=== PATIENT | male | born 1970 | race Two or more races ===

== ENCOUNTER 2017-06-09 22:34 | Emergency (ER) | payer SELFPAY ==
[2017-06-09 22:43] VITALS: RESP 16
--- NOTE | 2017-06-09 23:05 | EDPHY ---
H & P Stated Complaint: JIMENEZ, swelling, and SOB HPI/ROS: HPI CHIEF COMPLAINT: Headache, feet swelling, hand swelling HISTORY OF PRESENT ILLNESS: This patient is a 47-year-old male, presents to the emergency room headache that started around 4:00 a.m. earlier this morning, additionally he reports that his face was swollen hands were swollen and feet were swollen. Patient states that his main complaint is a frontal throbbing headache that started at 4:00 a.m. it was gradual in onset was not thunderclap it was not sudden in onset he denies any neck pain or fever. He denies nausea, denies chest pain or shortness of breath. Denies focal numbness or tingling or focal weakness. He reports that he does feel globally weak. Additionally reports that his hands and feet were swollen however this improved throughout the day. They decided come to the emergency room tonight due to ongoing headache. Upon arrival here in emergency room he appears well nontoxic in no acute distress. Past Medical History: Hypertension, diabetes, CVA ischemic stroke Past Surgical History: No recent surgery Social History: Lives locally, denies drugs alcohol tobacco. Family History: Noncontributory ROS REVIEW OF SYSTEMS: A comprehensive 10 point review of systems is otherwise negative aside from elements mentioned in the history of present illness. Exam Constitutional appears well nontoxic triage nursing summary reviewed, vital signs reviewed, awake/alert. Eyes normal conjunctivae and sclera, EOMI, PERRLA. HENT normal inspection, atraumatic, moist mucus membranes, no epistaxis, neck supple/ no meningismus, no raccoon eyes. Respiratory clear to auscultation bilaterally, normal breath sounds, no respiratory distress, no wheezing. Cardiovascular rate normal, regular rhythm, no murmur, no edema, distal pulses normal. Gastrointestinal soft, non-tender, no rebound, no guarding, normal bowel sounds, no distension, no pulsatile mass. Genitourinary no CVA tenderness. Musculoskeletal no midline vertebral tenderness, full range of motion, no calf swelling, no tenderness of extremities, no meningismus, good pulses, neurovascularly intact. Skin pink, warm, & dry, no rash, skin atraumatic. Neurologic awake, alert and oriented x 3, AAOx3, moves all 4 extremities equally, motor intact, sensory intact, CN II-XII intact, normal cerebellar, normal vision, normal speech. Psychiatric normal mood/affect. Heme/Lymph/Immune no lymphadenopathy. Differential Diagnosis: Includes but is not limited to in a particular order hypertensive urgency, migraine headache, intracranial bleed, stroke, electrolyte disturbance, infection Medical Decision Making: Plan for this patient CT head without contrast, basic blood work, IV established with fluid bolus, pain medicine for his headache, check electrolytes, check kidney function, monitor his blood pressure. Re-evaluation: CT head without contrast called to me by Dr. Franz negative for acute bleed. Old findings consistent with neurocysticercosis. EKG interpretation by me on record in [employer] system. Impression time of EKG 2316, this is sinus rhythm rate of 82. No acute ischemic change appreciated. Specifically no ischemia no ST elevation or ST depression. No T- wave abnormalities. Unremarkable EKG. ED x-ray chest one view: Right upper lobe infiltrate concerning for tuberculosis. 0138: I did re-evaluate this patient at this time. Patient is feeling much better. He states his headache is completely resolved. He is unremarkable neurological exam. He does not have a fever. His blood work has been reviewed is unremarkable. I did discuss about his CT scan findings of the neurocysticercosis, additionally I discussed about his x-ray the right upper lobe infiltrate that he states that he just completed TB treatment for. He would like to go home. He states he feels much better. He ambulated well throughout the emergency room. His neurological exam is unremarkable. Patient understands return precautions specifically understands return emergency room if develops worsening headache, fever, vomiting questions or concerns. I do recommend he follows up with his primary care doctor. I will provide him with some nausea medicine and short course of pain medicine. 0256: Patient re-evaluated he would like to go home. He is feeling better much better. Return precautions discussed. Return if worsening symptoms including headache, vomiting questions or concerns. Source: Patient - Personal History Current Tetanus/Diphtheria Vaccine: Yes Current Tetanus Diphtheria and Acellular Pertussis (TDAP): Yes - Medical/Surgical History Hx Asthma: No Hx Chronic Respiratory Disease: No Hx Diabetes: Yes Hx Cardiac Disease: Yes Hx Renal Disease: No Hx Cirrhosis: No Hx Alcoholism: No Hx HIV/AIDS: No Hx Splenectomy or Spleen Trauma: No Other PMH: DM, HTN, stroke 2004 - Social History Smoking Status: Never smoked Constitutional: Initial Vital Signs Temperature (C) 36.8 C 12/20/17 22:40 Heart Rate 87 06/09/17 22:40 Respiratory Rate 16 06/09/17 22:40 Blood Pressure 172/94 H 06/09/17 22:40 O2 Sat (%) 96 06/09/17 22:40 O2 Delivery Mode Room Air Allergies/Adverse Reactions: No Known Allergies Allergy (Unverified 06/09/17 22:43) Home Medications: Medication Instructions Recorded Levemir Flextouch 06/09/17 Lisinopril 06/09/17 Metformin HCl [Fortamet] DAILY 06/09/17 novoLOG 06/09/17 Hydrocodone/APAP 5/325 [[place] 1 - 2 tab PO Q4H PRN #10 tab 06/10/17 5/325] Ondansetron HCl [Zofran] 4 mg PO Q4-6PRN PRN #10 tablet 06/10/17 Medical Decision Making - Diagnostics Imaging Results: Imaging Impressions Chest X-Ray 06/09/17 23:13 Impression: Right apical consolidation. Consider post primary tuberculosis. Dr. Franz discussed these findings by telephone with Kaden Miller MD on at [address] 06/09/17 23:14 Impression: 1. No acute intracranial abnormalities. 2. Calcifications in the left occipital and bilateral frontal lobes likely represents sequelae of prior infection, probably neurocysticercosis. 3. 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 Dr. Franz discussed these findings by telephone with Kaden Miller MD on at 23:49. - Data Points Laboratory Results: Laboratory Results 06/09/17 22:55 06/09/17 22:55 06/10/17 06/10/17 06/09/17 00:15 00:15 22:55 WBC RBC Hgb Hct MCV MCH MCHC RDW Plt Count MPV Neut % (Auto) Lymph % (Auto) [place] % (Auto) Eos % (Auto) Baso % (Auto) Nucleat RBC Rel Count Absolute Neuts (auto) Absolute Lymphs (auto) Absolute Monos (auto) Absolute Eos (auto) Absolute Basos (auto) Absolute Nucleated RBC Immature Gran % Immature Gran # PT INR APTT Sodium 137 mEq/L mEq/L (134-144) Potassium 3.9 mEq/L mEq/L (3.5-5.2) Chloride 106 mEq/L mEq/L (97-110) Carbon Dioxide 24 mEq/l mEq/l (22-31) Anion Gap 7 mEq/L L mEq/L (8-16) BUN 19 mg/dL mg/dL (7-23) Creatinine 1.6 mg/dL H mg/dL (0.7-1.3) Estimated GFR 46 Glucose 239 mg/dL H mg/dL (70-100) Calcium 8.5 mg/dL mg/dL (8.5-10.4) Magnesium 1.8 mg/dL mg/dL (1.6-2.3) Total Bilirubin 0.3 mg/dL mg/dL (0.1-1.4) Conjugated Bilirubin 0.2 mg/dL mg/dL (0.0-0.5) Unconjugated Bilirubin 0.1 mg/dL mg/dL (0.0-1.1) AST 17 IU/L IU/L (17-59) ALT 32 IU/L IU/L (21-72) Alkaline Phosphatase 76 IU/L IU/L (38-126) Creatine Kinase 98 IU/L IU/L (0-224) CK-MB (CK-2) Fraction 1.13 ng/mL ng/mL (0.00-3.19) Troponin I < 0.012 ng/mL ng/mL (0.000-0.034) NT-Pro-B Natriuret Pep 227 pg/mL H pg/mL (0-125) Total Protein 4.8 g/dL L g/dL (6.3-8.2) Albumin 2.5 g/dL L g/dL (3.5-5.0) Lipase 152 IU/L IU/L (23-300) Urine Color PALE YELLOW Urine Appearance CLEAR Urine pH 6.0 (5.0-7.5) Ur Specific [place] 1.010 (1.002-1.030) Urine Protein 3+ H (NEGATIVE) Urine Ketones NEGATIVE (NEGATIVE) Urine Blood 1+ H (NEGATIVE) Urine Nitrate NEGATIVE (NEGATIVE) Urine Bilirubin NEGATIVE (NEGATIVE) Urine Urobilinogen NEGATIVE EU EU (0.2-1.0) Ur Leukocyte Esterase NEGATIVE (NEGATIVE) Urine RBC 5-10 /hpf H /hpf (0-3) Urine WBC 1-3 /hpf /hpf (0-3) Ur Epithelial Cells TRACE /lpf /lpf (NONE-1+) Urine Mucus TRACE /lpf /lpf (NONE-1+) Urine Glucose 3+ H (NEGATIVE) Urine Opiates Screen NEGATIVE (NEGATIVE) Urine Barbiturates NEGATIVE (NEGATIVE) Ur Phencyclidine Scrn NEGATIVE (NEGATIVE) Ur Amphetamine Screen NEGATIVE (NEGATIVE) U Benzodiazepines Scrn NEGATIVE (NEGATIVE) Urine Cocaine Screen NEGATIVE (NEGATIVE) U Marijuana (THC) Screen NEGATIVE (NEGATIVE) 06/09/17 06/09/17 22:55 22:55 WBC 5.23 10^3/uL 10^3/uL (3.80-9.50) RBC 3.81 10^6/uL L 10^6/uL (4.40-6.38) Hgb 11.7 g/dL L g/dL (13.7-17.5) Hct 31.4 % L % (40.0-51.0) MCV 82.4 fL fL (81.5-99.8) MCH 30.7 pg pg (27.9-34.1) MCHC 37.3 g/dL H g/dL (32.4-36.7) RDW 12.8 % % (11.5-15.2) Plt Count 216 10^3/uL 10^3/uL (150-400) MPV 10.6 fL fL (8.7-11.7) Neut % (Auto) 63.9 % % (39.3-74.2) Lymph % (Auto) 27.3 % % (15.0-45.0) [place] % (Auto) 4.2 % L % (4.5-13.0) Eos % (Auto) 3.4 % % (0.6-7.6) Baso % (Auto) 0.6 % % (0.3-1.7) Nucleat RBC Rel Count 0.0 % % (0.0-0.2) Absolute Neuts (auto) 3.34 10^3/uL 10^3/uL (1.70-6.50) Absolute Lymphs (auto) 1.43 10^3/uL 10^3/uL (1.00-3.00) Absolute Monos (auto) 0.22 10^3/uL L 10^3/uL (0.30-0.80) Absolute Eos (auto) 0.18 10^3/uL 10^3/uL (0.03-0.40) Absolute Basos (auto) 0.03 10^3/uL 10^3/uL (0.02-0.10) Absolute Nucleated RBC 0.00 10^3/uL 10^3/uL (0-0.01) Immature Gran % 0.6 % % (0.0-1.1) Immature Gran # 0.03 10^3/uL 10^3/uL (0.00-0.10) PT 13.1 SEC SEC (12.0-15.0) INR 0.97 (0.83-1.16) APTT 31.5 SEC SEC (23.0-38.0) Sodium Potassium Chloride Carbon Dioxide Anion Gap BUN Creatinine Estimated GFR Glucose Calcium Magnesium Total Bilirubin Conjugated Bilirubin Unconjugated Bilirubin AST ALT Alkaline Phosphatase Creatine Kinase CK-MB (CK-2) Fraction Troponin I NT-Pro-B Natriuret Pep Total Protein Albumin Lipase Urine Color Urine Appearance Urine pH Ur Specific [place] Urine Protein Urine Ketones Urine Blood Urine Nitrate Urine Bilirubin Urine Urobilinogen Ur Leukocyte Esterase Urine RBC Urine WBC Ur Epithelial Cells Urine Mucus Urine Glucose Urine Opiates Screen Urine Barbiturates Ur Phencyclidine Scrn Ur Amphetamine Screen U Benzodiazepines Scrn Urine Cocaine Screen U Marijuana (THC) Screen Medications Given: Discontinued Medications Hydromorphone HCl (Dilaudid) 1 mg IVP EDNOW ONE Stop: 06/09/17 23:24 Last Admin: 06/09/17 23:37 Dose: 1 mg Sodium Chloride (Ns) 1,000 mls @ 0 mls/hr IV EDNOW ONE; Wide Open PRN Reason: Protocol Stop: 06/09/17 23:14 Last Admin: 06/09/17 23:17 Dose: 1,000 mls Sodium Chloride (Ns) 1,000 mls @ 0 mls/hr IV ONCE ONE PRN Reason: Wide Open Stop: 06/10/17 01:40 Last Admin: 06/10/17 01:42 Dose: 1,000 mls Ondansetron HCl (Zofran) 4 mg IVP EDNOW ONE Stop: 06/09/17 23:24 Last Admin: 06/09/17 23:37 Dose: 4 mg Promethazine HCl (Phenergan) 6.25 mg IVP ONCE ONE Stop: 06/10/17 01:40 Last Admin: 06/10/17 01:41 Dose: 6.25 mg Departure - Departure Disposition: Home, Routine, Self-Care Clinical Impression: Headache Qualifiers: Headache type: unspecified Headache chronicity pattern: acute headache Intractability: not intractable Qualified Code(s): R51 - Headache Condition: Good Instructions: Acute Headache (ED) Additional Instructions: 1. Return emergency room if there is any worsening symptoms questions or concerns. 2. Return if you feel worse this includes severe headache, vomiting questions or concerns. Referrals: [facility] [Other] - As per Instructions Prescriptions: Hydrocodone/APAP 5/325 [[place] 5/325] 1 - 2 tab PO Q4H PRN #10 tab PRN Reason: Pain, Moderate Ondansetron HCl [Zofran] 4 mg PO Q4-6PRN PRN #10 tablet PRN Reason: Nausea/Vomiting, Use 1st
[2017-06-09] MEDS ORDERED: NS 1,000 ML IV ONE (23:13)
[2017-06-09 23:19] LABS: % IMMATURE GRANULYOCYTES 0.6 % (0.0-1.1); ABSOLUTE IMMATURE GRANULOCYTES 0.03 10^3/uL (0.00-0.10); ADD DIFF? NO; ADD MORPH? NO; ADD SCAN? NO; ATYPICAL LYMPHOCYTE FLAG 30 (0-99); FRAGMENT RBC FLAG 0 (0-99); HEMATOCRIT 31.4 % (40.0-51.0); HEMOGLOBIN 11.7 g/dL (13.7-17.5); LEFT SHIFT FLG 0 (0-99); LIPEMIA HEMOLYSIS FLAG 90 (0-99); MEAN CELL HEMOGLOBIN 30.7 pg (27.9-34.1); MEAN CELL HEMOGLOBIN CONCENTR. 37.3 g/dL (32.4-36.7); MEAN CELL VOLUME 82.4 fL (81.5-99.8); MEAN PLATELET VOLUME 10.6 fL (8.7-11.7); PLATELET CLUMPS FLAG 0 (0-99); PLATELET COUNT 216 10^3/uL (150-400); RED BLOOD CELL COUNT 3.81 10^6/uL (4.40-6.38); RED CELL DISTRIBUTION WIDTH 12.8 % (11.5-15.2)
--- NOTE | 2017-06-09 23:19 | CPEKG ---
Heart Rate: 82 RR Interval: 732 P-R Interval: 136 QRSD Interval: 78 QT Interval: 348 QTC Interval: 407 P [place]: 13 QRS [place]: 0 T Wave [place]: 6 EKG Severity - NORMAL ECG - EKG Impression: SINUS RHYTHM Electronically Signed By: Kaden Miller 10-Jun-2017 07:19:27
[2017-06-09] MEDS ORDERED: ONDANSETRON 4 MG/2 ML VIAL IVP ONE (23:23)
[2017-06-09] MEDS ORDERED: HYDROmorphONE/DILAUDID 1 MG/ML INJ IVP ONE (23:23)
[2017-06-09 23:24] LABS: INR 0.97 (0.83-1.16); PROTIME(PATIENT) 13.1 SEC (12.0-15.0)
[2017-06-09 23:25] LABS: APTT 31.5 SEC (23.0-38.0)
[2017-06-09 23:28] LABS: ALANINE AMINOTRANSFERASE 32 IU/L (21-72); ALBUMIN 2.5 g/dL (3.5-5.0); ALKALINE PHOSPHATASE 76 IU/L (38-126); ANION GAP 7 mEq/L (8-16); ASPARTATE AMINOTRANSFERASE 17 IU/L (17-59); BILIRUBIN,TOTAL 0.3 mg/dL (0.1-1.4); BILIRUBIN-CONJUGATED 0.2 mg/dL (0.0-0.5); BILIRUBIN-UNCONJUGATED 0.1 mg/dL (0.0-1.1); CALCIUM 8.5 mg/dL (8.5-10.4); CARBON DIOXIDE 24 mEq/l (22-31); CHLORIDE 106 mEq/L (97-110); CREATININE 1.6 mg/dL (0.7-1.3); GLOMERULAR FILTRATION RATE 46; GLUCOSE 239 mg/dL (70-100); MAGNESIUM 1.8 mg/dL (1.6-2.3); POTASSIUM 3.9 mEq/L (3.5-5.2); SODIUM 137 mEq/L (134-144); TOTAL PROTEIN 4.8 g/dL (6.3-8.2)
[2017-06-09 23:40] LABS: CREATINE KINASE-MB FRACTION 1.13 ng/mL (0.00-3.19); TROPONIN I < 0.012 ng/mL (0.000-0.034)
[2017-06-10 00:45] LABS: COLOR PALE YELLOW; LEUKOCYTE ESTERASE,URINE NEGATIVE (NEGATIVE); NITRITE,URINE NEGATIVE (NEGATIVE)
[2017-06-10 00:47] LABS: MUCUS TRACE /lpf (NONE-1+)
[2017-06-10] MEDS ORDERED: NS 1,000 ML IV ONE (01:39)
[2017-06-10] MEDS ORDERED: PROMETHAZINE HCL 25 MG/ML INJ ONE (01:39)
[2017-06-10] MEDS ORDERED: PROMETHAZINE HCL 25 MG/ML INJ IVP ONE (01:39)
[2017-06-10 03:31] VITALS: BP 126/74; PULSE 74; TEMP 98.1; O2SAT 96
== END 2017-06-10 03:31 | disposition home or self-care (01) ==
DX: R51 Headache (principal); I10 Essential (primary) hypertension; E11.9 Type 2 diabetes mellitus without complications; E86.9 Volume depletion, unspecified; Z79.4 Long term (current) use of insulin; Z79.84 Long term (current) use of oral hypoglycemic drugs; Z86.73 Personal history of transient ischemic attack (TIA), and cerebral infarction without residual deficits
CPT/HCPCS: 80305; 96374; J1170; J2405; J2550